=== PATIENT | female | born 1975 | race Caucasian/White ===

== ENCOUNTER 2022-09-11 07:44 | Outpatient (CLI) | payer BC, SELFPAY ==
--- NOTE | 2022-09-11 08:40 | ECG_ITS ---
Measurements Intervals [place] Rate: 95 P: 25 LA: 134 QRS: 21 QRSD: 93 T: 6 QT: 348 QTc: 438 Interpretive Statements SINUS RHYTHM NO PREVIOUS ECG AVAILABLE FOR COMPARISON Electronically Signed On 09-11-2022 16:18:52 VARNISHER by Jessica Benjamin M.D.
== END 2022-09-11 07:45 | disposition home or self-care (01) ==
PROVIDERS: PCP Family Medicine; Visit Provider Family Medicine
DX: R00.0 Tachycardia, unspecified (principal)
CPT/HCPCS: 93005